=== PATIENT | male | born 1935 | race Caucasian/White ===

== ENCOUNTER 2018-11-26 14:07 | Inpatient (IN) ==
[2018-11-26] MEDS ORDERED: ONDANSETRON 4 MG/2 ML VIAL IV PRN (18:14)
[2018-11-26] MEDS ORDERED: SODIUM CHLORIDE 0.9% 2,000 ML IV ONE (18:42)
[2018-11-26] MEDS ORDERED: PHENOL 1.4% THROAT SPRAY 177 ML BOTTLE PO PRN (18:45)
[2018-11-26] MEDS ORDERED: cefTRIAXone 1,000 MG in SODIUM CHLORIDE 0.9% 100 ML IV SCH (19:00)
[2018-11-26 20:24] LABS: Lactic Acid 3.3 MMOL/L (0.4-2.0)
[2018-11-26] MEDS ORDERED: GABAPENTIN 300 MG CAPSULE PO SCH (21:00)
[2018-11-26] MEDS: rOPINIRole 0.25 MG TABLET PO SCH (21:27)
[2018-11-26] MEDS: FERROUS SULFATE 325 MG TABLET PO SCH (21:28)
[2018-11-26] MEDS: LACTULOSE 20 GM/30 ML UDCUP PO SCH (21:28)
[2018-11-26] MEDS: SODIUM CHLORIDE 0.9% 1,000 ML IV SCH (23:20)
[2018-11-26] MEDS ORDERED: INSULIN REGULAR 100 UNIT/ML SUBCUT PRN (23:37)
[2018-11-27 00:54] LABS: Basophils % 0.2 % (0.0-0.8); Hematocrit 33.9 VOL% (42.0-52.0); Hemoglobin 10.8 GM/DL (14.0-18.0); Immature Granulocytes % 3.3 %; Lymphocytes # 0.3 10*3/uL (1.4-4.0); Lymphocytes % 2.1 % (21.2-54.2); Mean Corpuscular HGB Conc 31.9 GM/DL (32-36); Mean Corpuscular Hemoglobin 30 PG (27-34); Mean Corpuscular Volume 92.9 FL (87-102); Mean Platelet Volume 12.4 FL (9.6-12.0); Monocytes # 0.7 10*3/uL (0.11-0.8); Monocytes % 4.6 % (1.7-12.7); Neutrophils # 13.6 10*3/uL (1.4-7.4); Neutrophils % 89.8 % (38.7-73.9); Red Blood Count 3.65 MC/CUMM (3.8-5.5); Red Cell Distribution Width 15.3 % (9.3-17.3); White Blood Count 15.2 T/CUMM (4-12)
[2018-11-27 00:57] LABS: Platelet Count 68 T/CUMM (130-400)
[2018-11-27 01:19] LABS: Calcium 8.2 MG/DL (8.5-10.1); Osmolality,Calculated 300.1 MOS/KG (273-304)
[2018-11-27 01:35] LABS: Band Neutrophils 9 % (0-10); Giant Platelets Few; Lymphocytes 4 % (20-55); Metamyelocytes 5 %; Myelocytes 3 %; Segmented Neutrophils 75 % (50-85)
[2018-11-27 01:36] LABS: Hypochromasia 1+; Ovalocytes 1+; Platelet Estimate Decreased
[2018-11-27 01:37] LABS: Total Cells Counted 100
[2018-11-27] MEDS ORDERED: METOPROLOL TARTRATE 5 MG/5 ML VIAL IV ONE (07:55)
[2018-11-27] MEDS: rOPINIRole 0.25 MG TABLET PO SCH ×2 (08:10→22:34)
[2018-11-27] MEDS: GABAPENTIN 100 MG CAPSULE PO SCH ×2 (08:11→22:35)
[2018-11-27] MEDS: SODIUM CHLORIDE 0.9% 1,000 ML IV SCH ×2 (08:11→18:33)
[2018-11-27] MEDS: PANTOPRAZOLE 40 MG TABLET PO SCH (08:11)
[2018-11-27 08:52] LABS: Lactic Acid 2.2 MMOL/L (0.4-2.0)
[2018-11-27] MEDS: ACETAMINOPHEN 325 MG TABLET PO PRN (10:26)
[2018-11-27] MEDS: FERROUS SULFATE 325 MG TABLET PO SCH ×3 (10:27→22:34)
[2018-11-27] MEDS: LACTULOSE 20 GM/30 ML UDCUP PO SCH ×2 (10:27→22:34)
[2018-11-27] MEDS: RIFAXIMIN 550 MG TABLET PO SCH ×2 (10:33→22:35)
[2018-11-27] MEDS: METOPROLOL TARTRATE 25 MG TABLET PO SCH ×2 (13:00→22:35)
[2018-11-27 13:17] LABS: Hepatitis A Ab IgM Quant 0.15 Index; Hepatitis A Ab IgM Result Negative (Negative); Hepatitis B Core IgM Quant 0.05 Index; Hepatitis B Core IgM Result Negative (Negative); Hepatitis B Surface Ag Quant < 0.10 Index; Hepatitis B Surface Ag Result Negative (Negative); Hepatitis C Virus Ab Quant < 0.02 Index; Hepatitis C Virus Ab Result Negative (Negative)
[2018-11-27] MEDS ORDERED: SODIUM CHLORIDE 0.9% 500 ML IV ONE (16:34)
[2018-11-27] MEDS: cefTRIAXone 1,000 MG in SYRINGE 1 EACH IV SCH (18:34)
[2018-11-27] MEDS: NYSTATIN POWDER 15 GM BOTTLE TOP SCH ×2 (20:16→22:36)
[2018-11-27] MEDS: NYSTATIN CREAM 15 GM TUBE TOP SCH ×2 (20:16→22:36)
[2018-11-27] MEDS: LEVOFLOXACIN INJ 750 MG in PREMIX 1 EACH IV SCH (20:17)
[2018-11-27] MEDS: ASPIRIN EC 81 MG TABLET PO SCH (20:21)
[2018-11-28 07:09] LABS: Basophils % 0.1 % (0.0-0.8); Eosinophils % 0.1 % (0.00-10.9); Hematocrit 34.4 VOL% (42.0-52.0); Hemoglobin 10.9 GM/DL (14.0-18.0); Immature Granulocytes % 0.8 %; Immature Granulocytes Absolute 0.08 #; Lymphocytes # 0.3 10*3/uL (1.4-4.0); Lymphocytes % 3.6 % (21.2-54.2); Mean Corpuscular HGB Conc 31.7 GM/DL (32-36); Mean Corpuscular Hemoglobin 29 PG (27-34); Mean Corpuscular Volume 92.5 FL (87-102); Monocytes # 0.6 10*3/uL (0.11-0.8); Monocytes % 6.2 % (1.7-12.7); Neutrophils # 8.4 10*3/uL (1.4-7.4); Neutrophils % 89.2 % (38.7-73.9); Platelet Count 65 T/CUMM (130-400); Red Blood Count 3.72 MC/CUMM (3.8-5.5); Red Cell Distribution Width 15.2 % (9.3-17.3); White Blood Count 9.4 T/CUMM (4-12)
[2018-11-28 07:28] LABS: Albumin 1.9 G/DL (3.4-5.0); Bilirubin,Total 0.9 MG/DL (0.2-1.0); Calcium 8.1 MG/DL (8.5-10.1); Osmolality,Calculated 290.5 MOS/KG (273-304); Potassium 3.7 MMOL/L (3.5-5.1); Total Protein 6.6 G/DL (6.4-8.3)
[2018-11-28 07:29] LABS: Troponin I 0.029 NG/ML (0.00-0.045)
[2018-11-28 07:58] LABS: Band Neutrophils 25 % (0-10); Lymphocytes 2 % (20-55); Platelet Estimate Decreased; Segmented Neutrophils 69 % (50-85); Total Cells Counted 100
[2018-11-28 07:59] LABS: Anisocytosis Slight
[2018-11-28] MEDS ORDERED: TUBERCULIN SKIN TEST 0.1 ML SYRINGE INTRADERM ONE (09:35)
[2018-11-28] MEDS: LACTULOSE 20 GM/30 ML UDCUP PO SCH ×2 (10:14→21:08)
[2018-11-28] MEDS: ASPIRIN EC 81 MG TABLET PO SCH (10:20)
[2018-11-28] MEDS: rOPINIRole 0.25 MG TABLET PO SCH ×2 (10:20→21:08)
[2018-11-28] MEDS: GABAPENTIN 100 MG CAPSULE PO SCH ×2 (10:20→21:08)
[2018-11-28] MEDS: FERROUS SULFATE 325 MG TABLET PO SCH ×3 (10:20→21:09)
[2018-11-28] MEDS: NYSTATIN CREAM 15 GM TUBE TOP SCH ×2 (10:22→21:09)
[2018-11-28] MEDS: NYSTATIN POWDER 15 GM BOTTLE TOP SCH ×2 (10:22→21:09)
[2018-11-28] MEDS: METOPROLOL TARTRATE 25 MG TABLET PO SCH ×2 (11:29→21:09)
[2018-11-28] MEDS: RIFAXIMIN 550 MG TABLET PO SCH ×2 (11:29→21:07)
[2018-11-28] MEDS: PANTOPRAZOLE 40 MG TABLET PO SCH (11:30)
[2018-11-28] MEDS: SODIUM CHLORIDE 0.9% 1,000 ML IV SCH ×3 (11:33→21:11)
[2018-11-28 14:08] LABS: ABG Base Excess -3.2 MMOL/L (-2.5-2.5); ABG HCO3 19.9 MMOL/L (20-26); ABG Oxygen Saturation 90.5 % (95-100); ABG PCO2 29.9 MM HG (35-48); ABG PH 7.442 (7.35-7.45); ABG PO2 61.3 MM HG (80-95); ABG TCO2 20.9 MMOL/L (23-27)
[2018-11-28] MEDS ORDERED: RIFAXIMIN 550 MG TABLET PO SCH (15:00)
[2018-11-28] MEDS: cefTRIAXone 1,000 MG in SYRINGE 1 EACH IV SCH (17:00)
[2018-11-28] MEDS: LEVOFLOXACIN INJ 750 MG in PREMIX 1 EACH IV SCH (17:06)
[2018-11-29] MEDS ORDERED: DEXTROSE 50% 25 GM/50 ML VIAL IV ONE ×2 (07:15→07:46)
[2018-11-29] MEDS ORDERED: COLCHICINE 0.6 MG TABLET PO ONE (07:22)
[2018-11-29 07:23] LABS: Basophils % 0.2 % (0.0-0.8); Eosinophils % 0.2 % (0.00-10.9); Hematocrit 35.1 VOL% (42.0-52.0); Hemoglobin 11.2 GM/DL (14.0-18.0); Immature Granulocytes % 0.8 %; Immature Granulocytes Absolute 0.08 #; Lymphocytes # 0.3 10*3/uL (1.4-4.0); Lymphocytes % 3.4 % (21.2-54.2); Mean Corpuscular HGB Conc 31.9 GM/DL (32-36); Mean Corpuscular Hemoglobin 29 PG (27-34); Mean Corpuscular Volume 91.6 FL (87-102); Mean Platelet Volume 11.5 FL (9.6-12.0); Monocytes # 0.6 10*3/uL (0.11-0.8); Monocytes % 6.1 % (1.7-12.7); Neutrophils # 8.9 10*3/uL (1.4-7.4); Neutrophils % 89.3 % (38.7-73.9); Platelet Count 69 T/CUMM (130-400); Red Blood Count 3.83 MC/CUMM (3.8-5.5); Red Cell Distribution Width 15.4 % (9.3-17.3); White Blood Count 9.9 T/CUMM (4-12)
[2018-11-29] MEDS ORDERED: GLUCAGON 1 MG VIAL ONE (07:30)
[2018-11-29] MEDS ORDERED: GLUCAGON 1 MG VIAL IM ONE (07:44)
[2018-11-29 07:46] LABS: Hypochromasia 1+; Lymphocytes 3 % (20-55); Ovalocytes Slight; Platelet Estimate Decreased; Segmented Neutrophils 90 % (50-85); Total Cells Counted 100
[2018-11-29 07:52] LABS: Albumin 1.8 G/DL (3.4-5.0); Bilirubin,Total 0.8 MG/DL (0.2-1.0); Calcium 8.2 MG/DL (8.5-10.1); Osmolality,Calculated 285.8 MOS/KG (273-304); Potassium 3.3 MMOL/L (3.5-5.1); Total Protein 6.3 G/DL (6.4-8.3)
[2018-11-29] MEDS: DEXTROSE 5% 1,000 ML IV SCH (08:34)
[2018-11-29 09:09] LABS: ABG Base Excess -5.4 MMOL/L (-2.5-2.5); ABG HCO3 19.9 MMOL/L (20-26); ABG Oxygen Saturation 95.2 % (95-100); ABG PCO2 30.5 MM HG (35-48); ABG PH 7.388 (7.35-7.45); ABG PO2 77.5 MM HG (80-95); ABG TCO2 15.9 MMOL/L (23-27)
[2018-11-29] MEDS ORDERED: FUROSEMIDE 40 MG/4 ML VIAL IV ONE (09:33)
[2018-11-29] MEDS: RIFAXIMIN 550 MG TABLET PO SCH ×2 (10:18→21:12)
[2018-11-29] MEDS: METOPROLOL TARTRATE 25 MG TABLET PO SCH ×2 (10:19→22:46)
[2018-11-29] MEDS: rOPINIRole 0.25 MG TABLET PO SCH ×2 (10:20→21:12)
[2018-11-29] MEDS: ASPIRIN EC 81 MG TABLET PO SCH (10:20)
[2018-11-29] MEDS: GABAPENTIN 100 MG CAPSULE PO SCH ×2 (10:20→21:12)
[2018-11-29] MEDS: FERROUS SULFATE 325 MG TABLET PO SCH ×3 (10:21→21:11)
[2018-11-29] MEDS: NYSTATIN POWDER 15 GM BOTTLE TOP SCH ×2 (10:25→21:18)
[2018-11-29] MEDS: NYSTATIN CREAM 15 GM TUBE TOP SCH ×2 (10:25→21:18)
[2018-11-29] MEDS: LACTULOSE 20 GM/30 ML UDCUP PO SCH ×2 (10:25→21:11)
[2018-11-29] MEDS ORDERED: VANCOMYCIN INJ 1,250 MG in SODIUM CHLORIDE 0.9% 250 ML IV SCH (11:30)
[2018-11-29] MEDS: ALBUTEROL/IPRATROPIUM 3 ML NEB RESP TX SCH ×2 (13:32→19:45)
[2018-11-29] MEDS: NAFCILLIN 2,000 MG in SODIUM CHLORIDE 0.9% 100 ML IV SCH ×3 (13:43→21:09)
[2018-11-29] MEDS: ACETAMINOPHEN 325 MG TABLET PO PRN (14:21)
[2018-11-29] MEDS: oxyCODONE IR 5 MG TABLET PO PRN (18:46)
[2018-11-29] MEDS: POTASSIUM CHLORIDE 20 MEQ TABLET PO PRN (21:12)
[2018-11-29] MEDS: COLCHICINE 0.6 MG TABLET PO SCH (21:12)
[2018-11-30] MEDS: NAFCILLIN 2,000 MG in SODIUM CHLORIDE 0.9% 100 ML IV SCH ×6 (01:10→21:51)
[2018-11-30] MEDS: ALBUTEROL/IPRATROPIUM 3 ML NEB RESP TX SCH ×4 (01:24→19:33)
[2018-11-30 05:23] LABS: Basophils % 0.1 % (0.0-0.8); Eosinophils % 0.5 % (0.00-10.9); Hematocrit 35.5 VOL% (42.0-52.0); Hemoglobin 11.3 GM/DL (14.0-18.0); Immature Granulocytes % 2.2 %; Immature Granulocytes Absolute 0.17 #; Lymphocytes # 0.4 10*3/uL (1.4-4.0); Mean Corpuscular HGB Conc 31.8 GM/DL (32-36); Mean Corpuscular Hemoglobin 29 PG (27-34); Mean Corpuscular Volume 90.8 FL (87-102); Mean Platelet Volume 12.2 FL (9.6-12.0); Monocytes # 0.6 10*3/uL (0.11-0.8); Neutrophils # 6.4 10*3/uL (1.4-7.4); Neutrophils % 84.2 % (38.7-73.9); Red Blood Count 3.91 MC/CUMM (3.8-5.5); Red Cell Distribution Width 15.2 % (9.3-17.3); White Blood Count 7.7 T/CUMM (4-12)
[2018-11-30 05:28] LABS: Platelet Count 71 T/CUMM (130-400)
[2018-11-30 05:52] LABS: Platelet Estimate Decreased; Polychromasia Few
[2018-11-30 05:56] LABS: Albumin 1.6 G/DL (3.4-5.0); Bilirubin,Total 2.9 MG/DL (0.2-1.0); Calcium 7.9 MG/DL (8.5-10.1); Osmolality,Calculated 284.4 MOS/KG (273-304); Potassium 3.6 MMOL/L (3.5-5.1); Total Protein 6.1 G/DL (6.4-8.3)
[2018-11-30] MEDS ORDERED: TUBERCULIN SKIN TEST 0.1 ML SYRINGE INTRADERM ONE (07:18)
[2018-11-30] MEDS: COLCHICINE 0.6 MG TABLET PO SCH ×2 (08:55→21:52)
[2018-11-30] MEDS: rOPINIRole 0.25 MG TABLET PO SCH ×2 (08:55→21:52)
[2018-11-30] MEDS: GABAPENTIN 100 MG CAPSULE PO SCH ×2 (08:55→21:52)
[2018-11-30] MEDS: FERROUS SULFATE 325 MG TABLET PO SCH ×3 (08:55→21:54)
[2018-11-30] MEDS: LACTULOSE 20 GM/30 ML UDCUP PO SCH ×2 (08:55→21:56)
[2018-11-30] MEDS: ASPIRIN EC 81 MG TABLET PO SCH (08:56)
[2018-11-30] MEDS: METOPROLOL TARTRATE 25 MG TABLET PO SCH ×2 (08:56→21:55)
[2018-11-30] MEDS ORDERED: PERMETHRIN 5% CREAM 60 GM TUBE TOP SCH (09:00)
[2018-11-30] MEDS: NYSTATIN POWDER 15 GM BOTTLE TOP SCH ×2 (09:10→21:55)
[2018-11-30] MEDS: NYSTATIN CREAM 15 GM TUBE TOP SCH ×2 (09:10→21:55)
[2018-11-30] MEDS: RIFAXIMIN 550 MG TABLET PO SCH ×3 (12:17→21:52)
[2018-11-30 14:24] LABS: Apearance,Urine Slightly Hazy (Clear); Bacteria,Urine Occasional /HPF (Few); Bilirubin,Urine Negative (Negative); Blood, Urine Moderate mg/dL (Negative); Glucose,Urine (UA) Negative (Negative); Ketones,Urine Negative (Negative); Mucus,Urine Occasional /LPF (Occasional); Nitrite,Urine Negative (Negative); Protein,Urine Negative; RBC,Urine 4 /HPF (0-4); Squamous Epithelial Cell,Urine Occasional /HPF (0-10); Urine Color Yellow (Yellow); Urine Specific Gravity 1.015 (1.001-1.035); Urine Urobilinogen < 2.0 EU/DL (0.2-1.0); WBC,Urine 8 /HPF (0-6)
[2018-11-30] MEDS: methylPREDNISolone SOD SUC 40 MG/1 ML VIAL IV SCH (15:58)
[2018-11-30] MEDS: oxyCODONE IR 5 MG TABLET PO PRN ×2 (16:04→21:55)
[2018-11-30] MEDS: DEXTROSE 5% 1,000 ML IV SCH (16:12)
[2018-11-30] MEDS: POTASSIUM CHLORIDE 20 MEQ TABLET PO PRN (21:54)
[2018-12-01] MEDS: ALBUTEROL/IPRATROPIUM 3 ML NEB RESP TX SCH ×4 (00:08→19:55)
[2018-12-01] MEDS: NAFCILLIN 2,000 MG in SODIUM CHLORIDE 0.9% 100 ML IV SCH ×6 (02:12→21:04)
[2018-12-01 06:20] LABS: Basophils # 0.1 10*3/uL (0.0-0.2); Basophils % 0.7 % (0.0-0.8); Eosinophils % 0.1 % (0.00-10.9); Hemoglobin 11.8 GM/DL (14.0-18.0); Immature Granulocytes % 7.1 %; Immature Granulocytes Absolute 0.62 #; Lymphocytes # 0.4 10*3/uL (1.4-4.0); Lymphocytes % 4.6 % (21.2-54.2); Mean Corpuscular HGB Conc 29.4 GM/DL (32-36); Mean Corpuscular Hemoglobin 29 PG (27-34); Mean Corpuscular Volume 97.1 FL (87-102); Mean Platelet Volume 11.3 FL (9.6-12.0); Monocytes # 0.5 10*3/uL (0.11-0.8); Monocytes % 5.2 % (1.7-12.7); Neutrophils # 7.2 10*3/uL (1.4-7.4); Neutrophils % 82.3 % (38.7-73.9); Platelet Count 79 T/CUMM (130-400); Red Blood Count 4.14 MC/CUMM (3.8-5.5); Red Cell Distribution Width 15.9 % (9.3-17.3); White Blood Count 8.7 T/CUMM (4-12)
[2018-12-01 06:33] LABS: Hematocrit 39.4 VOL% (42.0-52.0)
[2018-12-01 06:34] LABS: Albumin 1.6 G/DL (3.4-5.0); Bilirubin,Total 3.3 MG/DL (0.2-1.0); Calcium 7.5 MG/DL (8.5-10.1); Osmolality,Calculated 279.8 MOS/KG (273-304); Potassium 3.7 MMOL/L (3.5-5.1); Total Protein 6.2 G/DL (6.4-8.3)
[2018-12-01] MEDS ORDERED: FUROSEMIDE 40 MG/4 ML VIAL IV ONE (06:59)
[2018-12-01] MEDS: RIFAXIMIN 550 MG TABLET PO SCH ×3 (09:25→21:06)
[2018-12-01] MEDS: ASPIRIN EC 81 MG TABLET PO SCH (09:25)
[2018-12-01] MEDS: rOPINIRole 0.25 MG TABLET PO SCH ×2 (09:25→21:05)
[2018-12-01] MEDS: LACTULOSE 20 GM/30 ML UDCUP PO SCH ×2 (09:25→21:07)
[2018-12-01] MEDS: COLCHICINE 0.6 MG TABLET PO SCH (09:25)
[2018-12-01] MEDS: FERROUS SULFATE 325 MG TABLET PO SCH ×3 (09:26→21:06)
[2018-12-01] MEDS: GABAPENTIN 100 MG CAPSULE PO SCH ×2 (09:26→21:06)
[2018-12-01] MEDS: METOPROLOL TARTRATE 25 MG TABLET PO SCH ×2 (09:27→21:06)
[2018-12-01] MEDS: NYSTATIN CREAM 15 GM TUBE TOP SCH ×2 (09:41→21:07)
[2018-12-01] MEDS: NYSTATIN POWDER 15 GM BOTTLE TOP SCH ×2 (09:41→21:07)
[2018-12-01 11:16] LABS: Atypical Lymphocytes Few; Band Neutrophils 6 % (0-10); Lymphocytes 13 % (20-55); Reactive Lymphocytes Slight; Segmented Neutrophils 81 % (50-85); Total Cells Counted 100
[2018-12-01 11:17] LABS: Platelet Estimate Decreased; Polychromasia Slight
[2018-12-01] MEDS: oxyCODONE IR 5 MG TABLET PO PRN ×2 (11:37→21:05)
[2018-12-01] MEDS: methylPREDNISolone SOD SUC 40 MG/1 ML VIAL IV SCH (16:21)
[2018-12-01] MEDS: POTASSIUM CHLORIDE 20 MEQ TABLET PO PRN (21:06)
[2018-12-02] MEDS: NAFCILLIN 2,000 MG in SODIUM CHLORIDE 0.9% 100 ML IV SCH ×6 (00:10→20:55)
[2018-12-02] MEDS: DEXTROSE 5% 1,000 ML IV SCH ×2 (00:11→04:23)
[2018-12-02] MEDS: ALBUTEROL/IPRATROPIUM 3 ML NEB RESP TX SCH ×4 (01:29→19:49)
[2018-12-02] MEDS: oxyCODONE IR 5 MG TABLET PO PRN ×2 (03:18→13:34)
[2018-12-02 05:43] LABS: Basophils # 0.1 10*3/uL (0.0-0.2); Basophils % 0.4 % (0.0-0.8); Eosinophils # 0.1 10*3/uL (0.0-0.87); Eosinophils % 0.5 % (0.00-10.9); Hematocrit 37.7 VOL% (42.0-52.0); Hemoglobin 11.8 GM/DL (14.0-18.0); Immature Granulocytes % 5.2 %; Immature Granulocytes Absolute 0.79 #; Lymphocytes # 0.6 10*3/uL (1.4-4.0); Mean Corpuscular HGB Conc 31.3 GM/DL (32-36); Mean Corpuscular Hemoglobin 29 PG (27-34); Mean Corpuscular Volume 91.5 FL (87-102); Mean Platelet Volume 11.3 FL (9.6-12.0); Monocytes # 0.7 10*3/uL (0.11-0.8); Monocytes % 4.4 % (1.7-12.7); Neutrophils # 12.9 10*3/uL (1.4-7.4); Neutrophils % 85.5 % (38.7-73.9); Platelet Count 118 T/CUMM (130-400); Red Blood Count 4.12 MC/CUMM (3.8-5.5); Red Cell Distribution Width 15.8 % (9.3-17.3); White Blood Count 15.1 T/CUMM (4-12)
[2018-12-02 06:07] LABS: Calcium 7.5 MG/DL (8.5-10.1); Osmolality,Calculated 281.7 MOS/KG (273-304); Potassium 3.2 MMOL/L (3.5-5.1)
[2018-12-02 06:10] LABS: Albumin 1.7 G/DL (3.4-5.0); Bilirubin,Total 3.4 MG/DL (0.2-1.0); Calcium 7.3 MG/DL (8.5-10.1); Osmolality,Calculated 285.4 MOS/KG (273-304); Potassium 3.3 MMOL/L (3.5-5.1); Total Protein 6.6 G/DL (6.4-8.3)
[2018-12-02 06:16] LABS: Band Neutrophils 4 % (0-10); Burr Cells Few; Hypochromasia 1+; Lymphocytes 2 % (20-55); Segmented Neutrophils 88 % (50-85); Total Cells Counted 100
[2018-12-02 06:17] LABS: Microcytosis Slight; Platelet Estimate Adequate
[2018-12-02] MEDS: LACTULOSE 20 GM/30 ML UDCUP PO SCH ×2 (08:58→22:00)
[2018-12-02] MEDS: COLCHICINE 0.6 MG TABLET PO SCH (08:59)
[2018-12-02] MEDS: DILTIAZEM CD 120 MG CAPSULE PO SCH ×2 (08:59→21:57)
[2018-12-02] MEDS: METOPROLOL TARTRATE 25 MG TABLET PO SCH ×2 (08:59→21:58)
[2018-12-02] MEDS: RIFAXIMIN 550 MG TABLET PO SCH ×3 (08:59→21:56)
[2018-12-02] MEDS: FERROUS SULFATE 325 MG TABLET PO SCH ×3 (08:59→21:59)
[2018-12-02] MEDS: ASPIRIN EC 81 MG TABLET PO SCH (08:59)
[2018-12-02] MEDS: rOPINIRole 0.25 MG TABLET PO SCH ×2 (08:59→21:59)
[2018-12-02] MEDS: POTASSIUM CHLORIDE 20 MEQ TABLET PO PRN ×4 (08:59→15:19)
[2018-12-02] MEDS: GABAPENTIN 100 MG CAPSULE PO SCH ×2 (08:59→21:55)
[2018-12-02] MEDS ORDERED: FUROSEMIDE 40 MG/4 ML VIAL IV SCH (09:00)
[2018-12-02] MEDS: NYSTATIN POWDER 15 GM BOTTLE TOP SCH ×2 (09:06→22:19)
[2018-12-02] MEDS: NYSTATIN CREAM 15 GM TUBE TOP SCH ×2 (09:06→22:18)
[2018-12-02] MEDS: ENOXAPARIN 30 MG/0.3 ML SYRINGE SUBCUT SCH (10:15)
[2018-12-02] MEDS: methylPREDNISolone SOD SUC 40 MG/1 ML VIAL IV SCH (15:19)
[2018-12-02 20:37] LABS: INR 1.2; PT Patient Result 13.5 SECS; Partial Thromboplastin Time 32.7 SECS (0-40)
[2018-12-03] MEDS: NAFCILLIN 2,000 MG in SODIUM CHLORIDE 0.9% 100 ML IV SCH ×4 (00:47→12:21)
[2018-12-03] MEDS: ALBUTEROL/IPRATROPIUM 3 ML NEB RESP TX SCH ×2 (01:36→07:10)
[2018-12-03 05:12] LABS: Basophils # 0.1 10*3/uL (0.0-0.2); Basophils % 0.4 % (0.0-0.8); Eosinophils # 0.1 10*3/uL (0.0-0.87); Eosinophils % 0.4 % (0.00-10.9); Hematocrit 36.3 VOL% (42.0-52.0); Hemoglobin 11.6 GM/DL (14.0-18.0); Immature Granulocytes % 6.1 %; Lymphocytes % 4.2 % (21.2-54.2); Mean Corpuscular Hemoglobin 29 PG (27-34); Mean Corpuscular Volume 91.4 FL (87-102); Mean Platelet Volume 10.7 FL (9.6-12.0); Monocytes # 0.8 10*3/uL (0.11-0.8); Monocytes % 3.4 % (1.7-12.7); Neutrophils # 19.5 10*3/uL (1.4-7.4); Neutrophils % 85.5 % (38.7-73.9); Platelet Count 183 T/CUMM (130-400); Red Blood Count 3.97 MC/CUMM (3.8-5.5); Red Cell Distribution Width 16.1 % (9.3-17.3); White Blood Count 22.9 T/CUMM (4-12)
[2018-12-03 05:22] LABS: Calcium 6.7 MG/DL (8.5-10.1); Osmolality,Calculated 286.4 MOS/KG (273-304); Potassium 3.3 MMOL/L (3.5-5.1)
[2018-12-03 05:27] LABS: Bilirubin,Direct 1.24 MG/DL (0.0-0.20); Bilirubin,Indirect 1.9 MG/DL (0.0-1.0); Bilirubin,Total 3.1 MG/DL (0.2-1.0)
[2018-12-03 05:31] LABS: Albumin 1.5 G/DL (3.4-5.0); Bilirubin,Total 3.3 MG/DL (0.2-1.0); Calcium 6.8 MG/DL (8.5-10.1); Osmolality,Calculated 288.2 MOS/KG (273-304); Potassium 3.3 MMOL/L (3.5-5.1)
[2018-12-03 05:52] LABS: Band Neutrophils 3 % (0-10); Hypochromasia 1+; Lymphocytes 5 % (20-55); Microcytosis Slight; Ovalocytes Slight; Platelet Estimate Adequate; Segmented Neutrophils 86 % (50-85); Total Cells Counted 100
[2018-12-03] MEDS ORDERED: LEVOTHYROXINE 100 MCG TABLET PO SCH (08:08)
[2018-12-03] MEDS ORDERED: LACTOBACILLUS RHAMNOSUS GG CAPSULE PO SCH (09:00)
[2018-12-03] MEDS: rOPINIRole 0.25 MG TABLET PO SCH (09:07)
[2018-12-03] MEDS: ENOXAPARIN 30 MG/0.3 ML SYRINGE SUBCUT SCH (09:08)
[2018-12-03] MEDS: POTASSIUM CHLORIDE 20 MEQ TABLET PO PRN ×3 (09:08→12:21)
[2018-12-03] MEDS: METOPROLOL TARTRATE 25 MG TABLET PO SCH (09:08)
[2018-12-03] MEDS: ASPIRIN EC 81 MG TABLET PO SCH (09:08)
[2018-12-03] MEDS: GABAPENTIN 100 MG CAPSULE PO SCH (09:08)
[2018-12-03] MEDS: FERROUS SULFATE 325 MG TABLET PO SCH (09:08)
[2018-12-03] MEDS: COLCHICINE 0.6 MG TABLET PO SCH (09:08)
[2018-12-03] MEDS: DILTIAZEM CD 120 MG CAPSULE PO SCH (09:09)
[2018-12-03] MEDS: RIFAXIMIN 550 MG TABLET PO SCH (09:09)
[2018-12-03] MEDS: LACTULOSE 20 GM/30 ML UDCUP PO SCH (09:09)
[2018-12-03] MEDS: NYSTATIN POWDER 15 GM BOTTLE TOP SCH (09:10)
[2018-12-03] MEDS: NYSTATIN CREAM 15 GM TUBE TOP SCH (09:10)
[2018-12-03] MEDS ORDERED: APIXABAN 2.5 MG TABLET PO SCH (14:00)
[2018-12-03 15:28] VITALS: BP 139/72
== END 2018-12-03 13:03 | DRG 682 ==
LOC: N.5E → SUATTDRO 16:50 → OBSVTOIN 16:50
PROVIDERS: ADMIT Internal Medicine; ATTEND Internal Medicine